=== PATIENT | male | born 1995 | race African-American/Black ===

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

== ENCOUNTER 2018-01-17 02:59 | Emergency (ER) | payer SELFPAY ==
[~2018-01-17] VITALS: Ht 185.4 cm; Wt 64.0 kg
[2018-01-17 07:00] VITALS: BP 115/67
== END 2018-01-17 07:00 | disposition home or self-care (01) ==
LOC: ER 02:59
DX: R10.30 Lower abdominal pain, unspecified (principal); R11.2 Nausea with vomiting, unspecified; R19.7 Diarrhea, unspecified; F12.90 Cannabis use, unspecified, uncomplicated
CPT/HCPCS: 99283; Z7610